=== PATIENT | male | born 1945 | race Caucasian/White ===

== ENCOUNTER 2020-04-15 01:11 | Inpatient (IN) | payer MEDICARE, OTHER ==
[~2020-04-15] VITALS: Ht 180.3 cm; Wt 114.5 kg
[~2020-04-15 01:11] MED LIST: ADVAIR HFA 115-28 GM INH; ALBUTEROL0.63 MG/3 INH; ALDACTONE25 MG PO; AVODART0.5 MG PO; BUDESONIDE-FO10.2 G1 INH; CITALOPRAM HBR10 MG PO; CLEARLAX119 GM PO; ELIQUIS5 MG PO; FAMOTIDINE20 MG PO; FLOMAX0.4 MG PO; FLONASE 0.05% N16 GM; GABAPENTIN800 MG PO; HUMALOG100 UNIT/1 SQ; HYDROCODON-ACE1 EAC6 PO; ISOSORBIDE MONO60 MG PO; KLONOPIN0.5 MG PO; LASIX20 MG PO; LIPITOR TAB 2020 MG PO; LISINOPRIL20 MG PO; LOPRESSOR 25 MG25 MG PO; MAGOX 400400 MG PO; NITROGLYCERIN0.4 MG SL; OMEGA 3 1,0001 EACH PO; PANTOPRAZOLE SO40 MG PO; PLAVIX75 MG PO; POTASSIUM CHLO10 MEQ PO; PRIMIDONE50 MG PO; PROAIR HFA8.5 GM INH; RANEXA500 MG PO; SINGULAIR10 MG PO; TYLENOL 500 MG500 MG PO; ZYRTEC10 MG PO
[2020-04-15] MEDS ORDERED: SPIRONOLACTONE25 MG PO (05:35)
[2020-04-15] MEDS ORDERED: LISINOPRIL2.5 MG PO (05:35)
[2020-04-15 09:02] LABS: RED BLOOD COUNT 3.41 M/UL (4.20-5.50)
[2020-04-16 02:19] LABS: HEMOGLOBIN 9.8 gm/dl (14.0-17.5); RED BLOOD COUNT 3.26 M/UL (4.20-5.50); WHITE BLOOD COUNT 6.1 K/UL (4.5-11.0)
[2020-04-16 02:45] LABS: BUN/CREATININE RATIO 24 (0-10)
--- NOTE | 2020-04-16 21:39 | NUR ---
PATIENT STATES THAT HE HAS CHEST PAIN AND LEFT ARM PAIN AROUND 2124. HE HAS A HEART RATE OF 96 AND BLOOD PRESSURE OF 110/40(46). PATIENT HAS PRN NITROGLYCERIN PASTE 1 INCH. PATIENT REFUSED NITROGLYCERIN 1 INCH PASTE AND WAS EDUCATED ON THE IMPORTANCE OF TAKING NITROGLYCERIN. THE PROVIDER WAS NOTIFIED OF THE PATIENT REFUSAL TO TAKE NITROGLYCERIN. PROVIDER PRESCRIBED ACETAMINOPHEN 500MG PO Q4HP.
[2020-04-17 02:56] LABS: RED BLOOD COUNT 3.01 M/UL (4.20-5.50); WHITE BLOOD COUNT 9.4 K/UL (4.5-11.0)
[2020-04-17 03:25] LABS: BUN/CREATININE RATIO 35 (0-10)
[2020-04-18 03:37] LABS: HEMOGLOBIN 10.1 gm/dl (14.0-17.5); WHITE BLOOD COUNT 8.4 K/UL (4.5-11.0)
[2020-04-18 03:54] LABS: BUN/CREATININE RATIO 33 (0-10)
[2020-04-18 04:08] LABS: RED BLOOD COUNT 3.41 M/UL (4.20-5.50)
[2020-04-19 02:34] LABS: HEMOGLOBIN 10.8 gm/dl (14.0-17.5); RED BLOOD COUNT 3.6 M/UL (4.20-5.50); WHITE BLOOD COUNT 7.2 K/UL (4.5-11.0)
[2020-04-19 02:53] LABS: BUN/CREATININE RATIO 30 (0-10)
[2020-04-20 03:06] LABS: HEMOGLOBIN 10.6 gm/dl (14.0-17.5); RED BLOOD COUNT 3.52 M/UL (4.20-5.50)
[2020-04-20 03:07] LABS: WHITE BLOOD COUNT 9.8 K/UL (4.5-11.0)
[2020-04-20 03:27] LABS: BUN/CREATININE RATIO 35 (0-10)
[2020-04-21 02:30] LABS: WHITE BLOOD COUNT 11.7 K/UL (4.5-11.0)
[2020-04-21 02:34] LABS: RED BLOOD COUNT 4.05 M/UL (4.20-5.50)
[2020-04-21 03:22] LABS: BUN/CREATININE RATIO 35 (0-10)
[2020-04-22 02:53] LABS: RED BLOOD COUNT 3.71 M/UL (4.20-5.50); WHITE BLOOD COUNT 11.3 K/UL (4.5-11.0)
[2020-04-22 03:13] LABS: BUN/CREATININE RATIO 33 (0-10)
[2020-04-23 03:06] LABS: HEMOGLOBIN 11.1 gm/dl (14.0-17.5); RED BLOOD COUNT 3.75 M/UL (4.20-5.50)
[2020-04-23 03:31] LABS: BUN/CREATININE RATIO 28 (0-10)
--- NOTE | 2020-04-23 19:19 | NUR ---
NOTIFIED TELEMETRY @ [facility]. 1914 THAT THE PT HAD A NEW ORDER FOR TELEMETRY AND PULSE OX. [facility] STATED THAT THEY HAD JUST SENT OUT THEIR LAST TELEMETRY BOX, BUT THEY WOULD TRY TO FIND ONE SOON POSSIBLE.
[2020-04-24 04:43] LABS: HEMOGLOBIN 12.1 gm/dl (14.0-17.5); RED BLOOD COUNT 4.08 M/UL (4.20-5.50); WHITE BLOOD COUNT 12.6 K/UL (4.5-11.0)
[2020-04-24 05:13] LABS: BUN/CREATININE RATIO 31 (0-10)
[2020-04-24] MEDS ORDERED: SPIRIVA HANDIH18 MCG INH (10:49)
[2020-04-24] MEDS ORDERED: FUROSEMIDE40 MG PO (10:49)
[2020-04-24] MEDS ORDERED: ASPIRIN EC81 MG PO (10:49)
[2020-04-25 02:50] LABS: HEMOGLOBIN 11.3 gm/dl (14.0-17.5); RED BLOOD COUNT 3.82 M/UL (4.20-5.50); WHITE BLOOD COUNT 13.9 K/UL (4.5-11.0)
[2020-04-25 03:20] LABS: BUN/CREATININE RATIO 28 (0-10)
[2020-04-26 06:18] LABS: HEMOGLOBIN 11.8 gm/dl (14.0-17.5); RED BLOOD COUNT 4.01 M/UL (4.20-5.50); WHITE BLOOD COUNT 12.8 K/UL (4.5-11.0)
[2020-04-26 06:44] LABS: BUN/CREATININE RATIO 28 (0-10)
[2020-04-27 03:53] LABS: RED BLOOD COUNT 3.68 M/UL (4.20-5.50); WHITE BLOOD COUNT 13.4 K/UL (4.5-11.0)
[2020-04-27 04:23] LABS: BUN/CREATININE RATIO 33 (0-10)
== END 2020-04-27 17:30 | disposition home health service (06) | DRG 177 ==
LOC: PROG CARE 01:11 → MED SURG 4 04:30 → PROG CARE 04:30 → MED SURG 4 04-23 15:18
PROVIDERS: Hospitalist; Internal Medicine; ADMIT Internal Medicine
PROC: 8E0ZXY6 Isolation (ICD-10-PCS; principal; 2020-04-15)
PROC: XW033E5 Introduction of Remdesivir Anti-infective into Peripheral Vein, Percutaneous Approach, New Technology Group 5 (ICD-10-PCS; 2020-04-17)
DX: U07.1 COVID-19 (principal); J12.82 Pneumonia due to coronavirus disease 2019; J96.01 Acute respiratory failure with hypoxia; J15.9 Unspecified bacterial pneumonia; I21.A1 Myocardial infarction type 2; I50.33 Acute on chronic diastolic (congestive) heart failure; F11.20 Opioid dependence, uncomplicated; E87.1 Hypo-osmolality and hyponatremia; I48.91 Unspecified atrial fibrillation; I25.10 Atherosclerotic heart disease of native coronary artery without angina pectoris; I11.0 Hypertensive heart disease with heart failure; E78.5 Hyperlipidemia, unspecified; E11.9 Type 2 diabetes mellitus without complications; J44.9 Chronic obstructive pulmonary disease, unspecified; G25.0 Essential tremor; N40.0 Benign prostatic hyperplasia without lower urinary tract symptoms; J30.9 Allergic rhinitis, unspecified; F41.9 Anxiety disorder, unspecified; D64.9 Anemia, unspecified; E66.9 Obesity, unspecified; K21.9 Gastro-esophageal reflux disease without esophagitis; M51.36 Other intervertebral disc degeneration, lumbar region; F32.9 Major depressive disorder, single episode, unspecified; G89.29 Other chronic pain; F17.290 Nicotine dependence, other tobacco product, uncomplicated; E87.5 Hyperkalemia; D72.829 Elevated white blood cell count, unspecified; T38.0X5A Adverse effect of glucocorticoids and synthetic analogues, initial encounter; M54.9 Dorsalgia, unspecified; Z90.49 Acquired absence of other specified parts of digestive tract; Z68.35 Body mass index [BMI] 35.0-35.9, adult; Z99.81 Dependence on supplemental oxygen; Z95.1 Presence of aortocoronary bypass graft; Z95.5 Presence of coronary angioplasty implant and graft; Z80.9 Family history of malignant neoplasm, unspecified; Z82.49 Family history of ischemic heart disease and other diseases of the circulatory system; Z83.3 Family history of diabetes mellitus; Z79.01 Long term (current) use of anticoagulants; Z79.02 Long term (current) use of antithrombotics/antiplatelets; Z79.4 Long term (current) use of insulin; Z79.899 Other long term (current) drug therapy
CPT/HCPCS: 36415; 71045; 71046; 80048; 80053; 82550; 82553; 82962; 83735; 84132; 84484; 85025; 85027; 85610; 85730; 93005; 94640; 94664; 94760; 97110; 97116; 97116-GP-CQ; 97161; 97166; 97530-GP-CQ; J0696; J1100; J1335; J1940; J3475; J7030